=== PATIENT | female | born 1960 | race Caucasian/White ===

== ENCOUNTER → 2016-06-23 | Outpatient (CLI) | payer BC ==
--- NOTE | 2016-06-24 13:32 | MM ---
Reason for exam: screening (asymptomatic). Last mammogram was performed 1 year and 1 month ago. History: Patient is postmenopausal. Benign right mammotome panel of the right breast, April 19, 2007. Took hormonal contraceptives for 3 years beginning at age 19. Taking estrogen for 23 years. Physical Findings: A clinical breast exam by your physician is recommended on an annual basis and results should be correlated with mammographic findings. MG Screening Mammo w CAD Bilateral CC and MLO view(s) were taken. Prior study comparison: May 09, 2015, left breast MG 3d work up w/cad LT. April 25, 2015, bilateral MG screening mammo w CAD. February 01, 2014, bilateral MG screening mammo w CAD. May 12, 2012, bilateral digital screening mammo w/CAD. There are scattered fibroglandular densities. Previous mammotome biopsy in the right breast. There is chronic nodularity in the left breast. No significant changes when compared with prior studies. ASSESSMENT: Negative, BI-RAD 1 RECOMMENDATION: Routine screening mammogram of both breasts in 1 year.
== END | disposition home or self-care (01) ==
LOC: RADMAMWWP 16:00
PROVIDERS: ATTEND Family Medicine
DX: Z12.31 Encounter for screening mammogram for malignant neoplasm of breast (principal)

== ENCOUNTER 2016-10-04 08:39 | Day surgery (SDC) | payer BC ==
[2016-10-04 09:25] VITALS: RESP 14
[2016-10-04 09:29] LABS: Mean Platelet Volume 8.6
[2016-10-04 09:42] LABS: Prothrombin Time 10.2 sec (9.0-12.0)
--- NOTE | 2016-10-04 10:53 | US ---
EXAMINATION TYPE: US biopsy liver DATE OF EXAM: 10/04/2016 10:44 AM HISTORY: Elevated liver function tests. PROCEDURE: Maximal barrier technique was utilized. After informed consent, the skin overlying a suit able path to the liver was localized using ultrasound, the skin was prepped and draped. Ultrasound w as utilized with sterile technique. Lidocaine was used for local anesthesia. A skin juanita made with a scalpel. Under direct ultrasound guidance, an 18-gauge needle was advanced into the left lobe of th e liver and core biopsy obtained. Hemostasis was achieved. There was no immediate complication and patient remained in stable condition. Specimen submitted in formalin to Pathology. IMPRESSION: STATUS POST ULTRASOUND GUIDED CORE BIOPSY OF THE LEFT LOBE OF THE LIVER, PATHOLOGY KHALIDA Iyer PERFORMED BY THE UNDERSIGNED.
[2016-10-04 15:20] VITALS: BP 133/76; PULSE 80; TEMP 98
== END 2016-10-04 15:10 | disposition home or self-care (01) ==
LOC: RADPROMAIN 08:39
DX: K75.81 Nonalcoholic steatohepatitis (NASH) (principal); R94.5 Abnormal results of liver function studies
CPT/HCPCS: 47000; 76942; 85049; 85610; 88307; 88313

== ENCOUNTER → 2017-10-31 | Outpatient (CLI) | payer BC ==
--- NOTE | 2017-11-02 07:28 | MM ---
Reason for exam: screening (asymptomatic). Last mammogram was performed 1 year and 4 months ago. History: Patient is postmenopausal. Benign right mammotome panel of the right breast, April 19, 2007. Took hormonal contraceptives for 3 years beginning at age 19. Taking estrogen for 23 years. Physical Findings: A clinical breast exam by your physician is recommended on an annual basis and results should be correlated with mammographic findings. MG Screening Mammo w CAD Bilateral CC and MLO view(s) were taken. Prior study comparison: June 23, 2016, bilateral MG screening mammo w CAD. May 09, 2015, left breast MG 3d work up w/cad LT. The breast tissue is heterogeneously dense. This may lower the sensitivity of mammography. There is a stable left central outer mass back to 2014. No suspicious abnormality. Right biopsy marker noted. No significant changes when compared with prior studies. ASSESSMENT: Benign, BI-RAD 2 RECOMMENDATION: Routine screening mammogram of both breasts in 1 year.
== END | disposition home or self-care (01) ==
LOC: RADMAMWWP 17:04
PROVIDERS: ATTEND Family Medicine
DX: Z12.31 Encounter for screening mammogram for malignant neoplasm of breast (principal)
CPT/HCPCS: 77067

== ENCOUNTER → 2018-11-22 | Outpatient (CLI) | payer BC ==
--- NOTE | 2018-11-24 14:45 | MM ---
Reason for exam: screening (asymptomatic). Last mammogram was performed 1 year and 1 month ago. History: Patient is postmenopausal. Benign excisional biopsy of the left breast, 2014. Benign right mammotome panel of the right breast, April 19, 2007. Took hormonal contraceptives for 3 years beginning at age 19. Taking estrogen for 23 years. Physical Findings: A clinical breast exam by your physician is recommended on an annual basis and results should be correlated with mammographic findings. MG Screening Mammo w CAD Bilateral CC and MLO view(s) were taken. Prior study comparison: October 31, 2017, bilateral MG screening mammo w CAD. June 23, 2016, bilateral MG screening mammo w CAD. The breast tissue is heterogeneously dense. This may lower the sensitivity of mammography. Previous mammotome biopsy in the right breast. Focal asymmetry in the left breast. No significant changes when compared with prior studies. ASSESSMENT: Benign, BI-RAD 2 RECOMMENDATION: Routine screening mammogram of both breasts in 1 year.
== END | disposition home or self-care (01) ==
LOC: RADMAMWWP 16:41
PROVIDERS: ATTEND Family Medicine
DX: Z12.31 Encounter for screening mammogram for malignant neoplasm of breast (principal)
CPT/HCPCS: 77067

== ENCOUNTER → 2020-10-31 | Outpatient (CLI) | payer OTHER ==
--- NOTE | 2020-11-05 12:15 | MM ---
Reason for exam: screening (asymptomatic). Last mammogram was performed 1 year and 11 months ago. History: Patient is postmenopausal. Benign excisional biopsy of the left breast, 2014. Benign right mammotome panel of the right breast, April 19, 2007. Took hormonal contraceptives for 3 years beginning at age 19. Taking estrogen for 23 years. Physical Findings: A clinical breast exam by your physician is recommended on an annual basis and results should be correlated with mammographic findings. MG Screening Mammo w CAD Bilateral CC and MLO view(s) were taken. Prior study comparison: November 22, 2018, bilateral MG screening mammo w CAD. October 31, 2017, bilateral MG screening mammo w CAD. There are scattered fibroglandular densities. Previous mammotome biopsy in the right breast, core benign biopsy marker. No significant changes when compared with prior studies. ASSESSMENT: Benign, BI-RAD 2 RECOMMENDATION: Routine screening mammogram of both breasts in 1 year.
== END | disposition home or self-care (01) ==
LOC: RADMAMWWP 14:27
PROVIDERS: ATTEND Family Medicine
DX: Z12.31 Encounter for screening mammogram for malignant neoplasm of breast (principal); Z78.0 Asymptomatic menopausal state
CPT/HCPCS: 77067

== ENCOUNTER → 2021-12-30 | Outpatient (CLI) | payer OTHER ==
--- NOTE | 2021-12-31 07:59 | MM ---
Reason for Exam: Screening (asymptomatic). Last mammogram was performed 1 year(s) and 2 month(s) ago. Patient History: Menarche at age 13. First Full-Term at age 19. Left ovary removed at age 32. Hysterectomy at age 32. Postmenopausal. Currently using Estrogen, for 23 years. Hormonal Contraceptives for 3 years from age 19 until age 24. 2014, Benign Excisional Biopsy on the left side. 04/19/2007, Benign Core Biopsy on the right side. Risk Values: Mellisa 5 year model risk: 1.6%. NCI Lifetime model risk: 7.7%. Prior Study Comparison: 10/31/2017 Bilateral Screening Mammogram, [facility]. 11/22/2018 Bilateral Screening Mammogram, [facility]. 10/31/2020 Bilateral Screening Mammogram, [facility]. Tissue Density: The breast tissue is heterogeneously dense. This may lower the sensitivity of mammography. Findings: Analyzed By CAD. There is no suspicious group of microcalcifications or new suspicious mass in either breast. Overall Assessment: Negative, BI-RAD 1 Management: Screening Mammogram of both breasts in 1 year. A clinical breast exam by your physician is recommended on an annual basis and results should be correlated with mammographic findings. Electronically signed and approved by: Nazario Knight M.D. Radiologis
== END | disposition home or self-care (01) ==
LOC: RADMAMWWP 09:59
PROVIDERS: ATTEND Family Medicine
DX: Z12.31 Encounter for screening mammogram for malignant neoplasm of breast (principal); Z78.0 Asymptomatic menopausal state
CPT/HCPCS: 77067

== ENCOUNTER → 2022-12-31 | Outpatient (CLI) | payer OTHER ==
--- NOTE | 2023-01-03 09:15 | MM ---
Reason for Exam: Screening (asymptomatic). Last screening mammogram was performed 12 month(s) ago. Patient History: Menarche at age 13. First Full-Term at age 19. Left ovary removed at age 32. Hysterectomy at age 32. Postmenopausal. Currently using Estrogen, for 23 years. Hormonal Contraceptives for 3 years from age 19 until age 24. 2014, Benign Excisional Biopsy on the left side. 04/19/2007, Benign Core Biopsy on the right side. Risk Values: Mellisa 5 year model risk: 1.7%. NCI Lifetime model risk: 7.5%. Prior Study Comparison: 11/22/2018 Bilateral Screening Mammogram, [facility]. 10/31/2020 Bilateral Screening Mammogram, [facility]. 12/30/2021 Bilateral MG screening mammo w CAD, [facility]. Tissue Density: There are scattered fibroglandular densities. Findings: Analyzed By CAD. Right biopsy clip. There is no suspicious group of microcalcifications or new suspicious mass in either breast. Overall Assessment: Negative, BI-RAD 1 Management: Screening Mammogram of both breasts in [address] [facility] will attempt to contact patient to return for supplemental views and ultrasound if indicated. Patient should continue monthly self-breast exams. A clinical breast exam by your physician is recommended on an annual basis. This exam should not preclude additional follow-up of suspicious palpable abnormalities. Note on Mellisa scores and lifetime risk: 1. A Mellisa score greater than 3% is considered moderate risk. If this is the case, consider specialist referral to assess eligibility for a risk reducing agent. 2. If overall lifetime risk for the development of breast cancer is 20% or higher, the patient may qualify for future screening with alternating mammogram and breast MRI. Electronically signed and approved by: Jake Jimenez DO
== END | disposition home or self-care (01) ==
LOC: RADMAMWWP 09:05
PROVIDERS: ATTEND Family Medicine
DX: Z12.31 Encounter for screening mammogram for malignant neoplasm of breast (principal); Z78.0 Asymptomatic menopausal state
CPT/HCPCS: 77067

== ENCOUNTER → 2024-04-17 | Outpatient (CLI) | payer OTHER ==
--- NOTE | 2024-04-18 09:53 | MM ---
Reason for Exam: Screening (asymptomatic). Last mammogram was performed 1 year(s) and 3 month(s) ago. Patient History: Menarche at age 13. First Full-Term at age 19. Left ovary removed at age 32. Hysterectomy at age 32. Postmenopausal. Currently using Estrogen, for 23 years. Hormonal Contraceptives for 3 years from age 19 until age 24. 2014, Benign Excisional Biopsy on the left side. 04/19/2007, Benign Core Biopsy on the right side. Risk Values: Mellisa 5 year model risk: 1.7%. NCI Lifetime model risk: 7.0%. Prior Study Comparison: 10/31/2020 Bilateral Screening Mammogram, [facility]. 12/30/2021 Bilateral MG screening mammo w CAD, [facility]. 12/31/2022 Bilateral MG screening mammo w CAD, [facility]. Tissue Density: There are scattered areas of fibroglandular density. Findings: Analyzed By CAD. Right breast: There is no suspicious group of microcalcifications or new suspicious mass. Left breast: There is no suspicious group of microcalcifications or new suspicious mass. Overall Assessment: Negative, BI-RAD 1 Management: Screening Mammogram of both breasts in [address] [facility] will attempt to contact patient to return for supplemental views and ultrasound if indicated. Patient should continue monthly self-breast exams. A clinical breast exam by your physician is recommended on an annual basis. This exam should not preclude additional follow-up of suspicious palpable abnormalities. Note on Mellisa scores and lifetime risk: 1. A Mellisa score greater than 3% is considered moderate risk. If this is the case, consider specialist referral to assess eligibility for a risk reducing agent. 2. If overall lifetime risk for the development of breast cancer is 20% or higher, the patient may qualify for future screening with alternating mammogram and breast MRI. [facility], , 04/18/2024 9:50 AM. Electronically signed and approved by: Jake Jimenez DO
== END | disposition home or self-care (01) ==
LOC: RADMAMWWP 16:00
PROVIDERS: ATTEND Family Medicine
CPT/HCPCS: 77067